=== PATIENT | male | born 1960 | race Caucasian/White ===

== ENCOUNTER 2020-09-26 13:02 | Emergency (ER) | payer BC, SELFPAY ==
[2020-09-26 14:46] LABS: COVID19 -Nasal RAPID Negative (Negative)
[2020-09-26 18:09] VITALS: BP 164/85; PULSE 67; RESP 16; TEMP 36.8; O2SAT 100
--- NOTE | 2020-09-26 18:33 | ED_ITS ---
HPI - Recheck/Abnormal Lab/Rx <SANTOS Joseph - Last Filed: 09/26/20 18:37> General Chief Complaint: Recheck/Abnormal Lab/Rx Stated Complaint: wants covid test for travel Time Seen by Provider: 09/26/20 17:10 Source: patient Mode of arrival: Ambulatory Limitations: no limitations History of Present Illness HPI narrative: the patient is a 59-year-old male nonsmoker who is vaccinated against coronavirus who presents requesting PCR testing of COVID today. He states that he has no symptoms, denies any cough congestion or shortness of breath. He states he has gone to multiple sites requesting coronavirus testing, but was declined because he has no symptoms. He states he is fully vaccinated, just needs PCR testing for travel to to [place] for a family emergency. Review of Systems <SANTOS Joseph - Last Filed: 09/26/20 18:37> Review of Systems Narrative: GENERAL: see HPI HEENT: Denies sinus pain, ear pain, sore throat, difficulty swallowing, dizziness. RESPIRATORY: Denies dyspnea, cough, wheezing, hemoptysis, sputum. CARDIOVASCULAR: Denies chest pain, palpitations, orthopnea, edema, GASTROINTESTINAL: Denies nausea, vomiting, abdominal pain, diarrhea, constipation, melena. : Denies dysuria, frequency, incontinence, hematuria, urinary retention. MUSCULOSKELETAL: denies weakness, joint pain, or bony pain SKIN: Denies rash, skin lesions, or other NEUROLOGIC: Denies weakness, headache, numbness, change in speech, confusion, seizures, incoordination. PSYCHIATRIC: No concerning psychosocial issues. 12 point review of systems is negative except for those stated above Exam <[facility] - Last Filed: 09/26/20 18:37> Narrative Exam Narrative: GENERAL: This is a well-nourished, well-developed patient, in no acute distress HEAD: Atraumatic. Normocephalic. No temporal or scalp tenderness. EYES: Pupils equal round and reactive. Extraocular motions intact. No scleral icterus. No injection or drainage. ENT: Nose without bleeding, purulent drainage or septal hematoma. wearing a masj. Airway patent. NECK: Trachea midline. . CARDIOVASCULAR: Regular rate and rhythm RESPIRATORY: no cough. No increased respiratory effort. No accessory EXTREMITIES: No clubbing, cyanosis, or edema. No joint tenderness, effusion, or edema noted. BACK: Nontender without deformity or crepitance. No flank tenderness. NEURO: AOx3. SKIN: No rash or erythema. Initial Vital Signs Initial Vital Signs: Vital Signs Temperature 98.3 F 09/26/20 18:09 Pulse Rate 67 09/26/20 18:09 Respiratory Rate 16 09/26/20 18:09 Blood Pressure 164/85 H 09/26/20 18:09 Pulse Oximetry 100 09/26/20 18:09 <DO Marquita Douglas Last Filed: 09/26/20 19:24> Initial Vital Signs Initial Vital Signs: Vital Signs Temperature 98.3 F 09/26/20 18:09 Pulse Rate 67 09/26/20 18:09 Respiratory Rate 16 09/26/20 18:09 Blood Pressure 164/85 H 09/26/20 18:09 Pulse Oximetry 100 09/26/20 18:09 Course <KULWANT Joseph - Last Filed: 09/26/20 18:37> Orders Ordered: ED Orders 09/26/20 14:27 COVID19 -Nasal swab/Pre-Proc Stat Vital Signs Vital signs: Vital Signs - 8 hr 09/26/20 18:09 Temperature 98.3 F Pulse Rate 67 Respiratory Rate 16 Blood Pressure 164/85 H Pulse Oximetry 100 <DO Marquita Douglas Filed: 09/26/20 19:24> Orders Ordered: ED Orders 09/26/20 14:27 COVID19 -Nasal swab/Pre-Proc Stat Vital Signs Vital signs: Vital Signs - 8 hr 09/26/20 18:09 Temperature 98.3 F Pulse Rate 67 Respiratory Rate 16 Blood Pressure 164/85 H Pulse Oximetry 100 MDM - Recheck/Abnormal Lab/Rx <KULWANT Joseph Last Filed: 09/26/20 18:37> Lab Data Labs: Lab Results 09/26/20 Range/Units 14:27 SARS-CoV-2 (PCR) Negative (Negative) [facility] Narrative Medical decision making narrative: The patient is a 59-year-old male who presents with a chief complaint of needing PCR testing to go to [place]. The patient has negative today. Encouraged follow-up with primary care provider if necessary, coming back to the ER for acute concerns. <DO Marquita Douglas Filed: 09/26/20 19:24> Lab Data Labs: Lab Results 09/26/20 Range/Units 14:27 SARS-CoV-2 (PCR) Negative (Negative) Discharge Plan Departure Patient Disposition: Home Clinical Impression: Encounter for laboratory testing for COVID-19 virus Instructions: COVID-19: Protecting Yourself When You're at High Risk, COVID-19: Testing and Tracing, Can COVID-19 be prevented? Activity Restrictions/Additional Instructions: thank you for trusting us with your care today. As discussed, you had a negative COVID PCR test today follow-up with primary care provider when you get back home, please come back to the emergency department for any acute concerns <Jovany Scales DO - Last Filed: 09/26/20 19:24> Cosign ED Attending Cosignature Attestation: Dr Scales Co-Sign Statement: I was available for consultation during this patient's emergency department visit. This chart is signed by myself for administrative purposes only. I did not have direct contact with this patient during this visit. They were seen independently by the APC.
== END 2020-09-26 18:09 | disposition home or self-care (01) ==
PROVIDERS: Emergency Provider Nurse Practitioner Family
DX: Z20.822 Contact with and (suspected) exposure to COVID-19 (principal)
CPT/HCPCS: 87635; 99281; 99282; C9803